=== PATIENT | female | born 1995 | race Caucasian/White ===

== ENCOUNTER 2018-11-26 09:52 | Emergency (ER) | payer BC, OTHER ==
[~2018-11-26] VITALS: Ht 165.1 cm; Wt 56.7 kg
--- NOTE | 2018-11-26 10:00 | NUR ---
REGISTRATION ERROR: PT WAS REGISTERED AT 0855 BUT PT CAME TO ER AT 0955.
--- NOTE | 2018-11-26 10:03 | NUR ---
DR Nogueira at the bedside for MSE.
--- NOTE | 2018-11-26 10:14 | NUR ---
Patient discharged to home in stable conditon. Written and verbal after care instructions given. Patient verbalizes understanding of instructions.
[2018-11-26 10:16] VITALS: BP 117/74
== END 2018-11-26 10:16 | disposition home or self-care (01) ==
LOC: ER 09:52
DX: Z00.00 Encounter for general adult medical examination without abnormal findings (principal)
CPT/HCPCS: A4663

== ENCOUNTER 2019-07-26 13:02 | Emergency (ER) | payer BC, OTHER ==
[~2019-07-26] VITALS: Ht 165.1 cm; Wt 56.7 kg
== END 2019-07-26 13:35 | disposition home or self-care (01) ==
LOC: ER 13:02
DX: M79.10 Myalgia, unspecified site (principal); J02.9 Acute pharyngitis, unspecified; Z20.828 Contact with and (suspected) exposure to other viral communicable diseases
CPT/HCPCS: 99283; U0003; A4663